=== PATIENT | female | born 2000 | race Caucasian/White ===

== ENCOUNTER → 2022-08-11 20:57 | Outpatient (CLI) | payer BC, SELFPAY ==
[2022-08-11 21:09] LABS: Coronavirus 19, PCR Not Detected (NotDetected); Influenza A, PCR Not Detected (NotDetected); Influenza B, PCR Not Detected (NotDetected)
== END ==
PROVIDERS: PCP Nurse Practitioner; Visit Provider Nurse Practitioner
DX: Z20.822 Contact with and (suspected) exposure to COVID-19 (principal); R05.9 Cough, unspecified; R09.81 Nasal congestion
CPT/HCPCS: C9803; U0003; U0005

== ENCOUNTER → 2022-09-26 23:44 | Outpatient (CLI) | payer BC, SELFPAY ==
[2022-09-26 19:12] LABS: Basophils # 0.1 K/mm3 (0-0.2); Basophils % 0.5 % (0.1-2.0); Eosinophils # 0.1 K/mm3 (0.0-0.4); Eosinophils % 0.8 % (0.1-12.0); Hematocrit 43.1 % (37.0-47.0); Hemoglobin 14.1 g/dL (12.2-16.2); Lymphocytes % 18.6 % (10-50); Mean Corpuscular HGB Conc 32.8 g/dL (31.8-35.4); Mean Corpuscular Hemoglobin 28.4 pg (27.0-31.2); Mean Corpuscular Volume 86.7 fl (81-99); Mean Platelet Volume 8.8 fl (7.4-10.4); Monocytes # 0.4 K/mm3 (0.1-1.0); Monocytes % 3.6 % (1.7-9.3); Neutrophils # 8.3 K/mm3 (1.8-7.8); Neutrophils % 76.7 % (37.0-80.0); Platelet Count 262 K/mm3 (142-424); Red Blood Count 4.97 M/mm3 (4.20-5.40); Red Cell Distribution Width 13.2 % (11.5-17.5); White Blood Count 10.8 K/mm3 (4.8-10.8)
== END ==
PROVIDERS: PCP Nurse Practitioner; Visit Provider Nurse Practitioner
DX: K92.1 Melena (principal)
CPT/HCPCS: 85025

== ENCOUNTER → 2023-05-12 12:50 | Outpatient (CLI) | payer BC, SELFPAY ==
--- NOTE | 2023-05-12 12:50 | MM_ITS ---
PROCEDURE INFORMATION: Exam: US Right Breast, Complete MG Bilateral Diagnostic Breast Tomosynthesis Exam date and time: 05/12/2023 1:31 PM Age: 22 years old Clinical indication: Right breast palpable lump at 7 o'clock TECHNIQUE: Imaging protocol: Complete ultrasound of all four quadrants of the right breast and the retroareolar regions, including ultrasound of the axilla when performed. Bilateral Diagnostic tomosynthesis and 2D mammography including computer-aided detection (CAD) when performed. Unilateral or bilateral exam. COMPARISON: MG MM DIG MAMM BI DX W/CAD 05/12/2023 12:54 PM FINDINGS: MAMMOGRAPHY: Breast composition: The breasts are extremely dense, which lowers the sensitivity of mammography. A skin marker was placed over an area of palpable concern in the anterior right lower outer quadrant. However, in somewhat close proximity to the marker is a lobulated 2.5 cm mass more in the posterior third of the right lower outer quadrant. There is no stellate mass, architectural distortion or suspicious microcalcifications in either breast to suggest malignancy. No skin thickening or axillary adenopathy. ULTRASOUND: Sonographic images of the right breast including the retroareolar region, all 4 quadrants and the axilla demonstrates a heterogeneous lobulated partially circumscribed solid mass in the 8 o'clock axis 7 cm from the nipple. This most closely corresponds to the lobulated mass on mammography and measures 1.6 x 2.5 x 1.7 cm in dimension. The finding is radiographically indeterminate. No other solid or cystic masses are noted in the right breast. No architectural distortion or acoustical shadowing. No skin thickening or axillary adenopathy. IMPRESSION: Palpable abnormality appears to correspond to a lobulated solid mass seen on mammography and sonography in the posterior right lower outer quadrant. Ultrasound-guided core biopsy is recommended for further evaluation ASSESSMENT: BI-RADS Category 4: Suspicious
== END ==
PROVIDERS: PCP Nurse Practitioner; Visit Provider Nurse Practitioner
DX: D48.61 Neoplasm of uncertain behavior of right breast (principal)
CPT/HCPCS: 76641; 77062; 77066; G0279

== ENCOUNTER → 2023-05-22 09:59 | Outpatient (CLI) | payer BC, SELFPAY ==
--- NOTE | 2023-05-22 10:00 | US_ITS ---
FINAL REPORT CLINICAL HISTORY: RT BREAST BIOSPY 8:00 -- DR. JUSTIN OBRIEN, right breast mass FINDINGS: ULTRASOUND-GUIDED RIGHT BREAST CORE BIOPSY TECHNIQUE: Limited images were obtained to localize region of interest. Hypoechoic mass in the right lower outer quadrant was noted at 7-8:00. The right breast was prepped in a routine sterile fashion and locally anesthetized with 1% lidocaine. Standard written informed consent was obtained. The biopsy needle was positioned within the outer periphery of the lesion. A total of 4 passes were made with a 18 gauge core biopsy needle. A biopsy marker clip was deployed in satisfactory position. Postbiopsy mammogram showed postbiopsy changes with clip in satisfactory position. Procedure was well tolerated . CONCLUSION: 1. Technically successful ultrasound guided core biopsy of right breast lesion as above. 2. Biopsy marker clip deployed Histopathology results reveal fibroadenoma.. Pathology is concordant with mammographic findings. Recommend 6 month sonographic follow-up as routine benign postbiopsy surveillance. Authenticated and ERN
--- NOTE | 2023-05-22 10:49 | MM_ITS ---
FINAL REPORT CLINICAL HISTORY: U/S GUIDED CORE BX--RIGHT BREAST- DR. JUSTIN OBRIEN , CLIP PLACEMENT FINDINGS: MAMMOGRAM RIGHT TECHNIQUE: Standard digital 2-D views COMPARISON: None DENSITY: There are scattered areas of fibroglandular density FINDINGS: Post biopsy marker clip is noted to be in satisfactory position. Postbiopsy changes are noted. Biopsy marker clip is noted within the ill-defined, obscured mass in the right lower outer quadrant. IMPRESSION: Biopsy marker clip in good position RECOMMENDATION: Given findings of fibroadenoma, six-month sonographic follow-up is recommended as part of normal post benign biopsy surveillance Authenticated and ERN
== END ==
PROVIDERS: PCP Nurse Practitioner; Visit Provider Nurse Practitioner
DX: D48.61 Neoplasm of uncertain behavior of right breast (principal)
CPT/HCPCS: 19083; 77065